=== PATIENT | male | born 1960 | race Caucasian/White ===

== ENCOUNTER 2023-07-24 11:22 | Outpatient (CLI) | payer BC, SELFPAY ==
--- NOTE | 2023-07-24 08:24 | DI.RAD_ITS ---
Exam(s) XR KNEE LT 2V AP,LAT EXAM: XR KNEE LT 2V AP,LAT CLINICAL HISTORY: OA LEFT KNEE. TECHNIQUE: 2D digital imaging was performed. COMPARISON: No exams were available for comparison FINDINGS: Two views. There is evidence of previous ACL surgery. No evidence of fracture. Small amount of increased joint fluid noted. The weight-bearing view there is [id number] narrowing of the medial compartment preservation of hei ght of the lateral compartment with milder degenerative changes lateral compartment. There is also s ignificant degenerative change in the patellofemoral compartment. On the lateral view there is also a calcified density posteriorly which is possibly a loose intra-articular body versus fabella. This measures 1.8 x 1.0 cm. IMPRESSION: Previous ACL surgery. Advanced degenerative change in the medial compartment. Moderate degenerative change in the patellofemoral compartment. Mild degenerative changes in the lateral compartment. Sm all joint effusion noted. DATA REPOSITORY: RADIATION DOSE DELIVERED:
--- NOTE | 2023-07-24 08:24 | DI.RAD_ITS ---
Exam(s) XR STANDING ALIGNMENT EXAM: XR STANDING ALIGNMENT CLINICAL HISTORY: OA LEFT KNEE. TECHNIQUE: 2D digital imaging was performed. COMPARISON: No exams were available for comparison FINDINGS: Five views There is evidence of previous left knee ACL surgery. There is moderate narrowing of the medial carol rtment of the left knee with preservation of height of the lateral compartment. In the opposite-righ t knee there is no significant joint space narrowing. Hips appear unremarkable as do the ankles. No osseous lesions. Bone density is age-appropriate. Incidentally noted in the lumbar spine is asymmetric disc space narrowing on the right side of L3-4 l evel with right-sided osteophytes. This may indicate asymmetric right-sided foraminal narrowing at t his level. IMPRESSION: Previous left knee ACL surgery with moderate narrowing of the medial compartment of the left knee. Other findings as above. DATA REPOSITORY: RADIATION DOSE DELIVERED:
== END 2023-07-24 11:23 | disposition home or self-care (01) ==
LOC: DIORS 11:22
PROVIDERS: Visit Provider Student in an Organized Health Care Education/Training Program
DX: M17.12 Unilateral primary osteoarthritis, left knee (principal)
CPT/HCPCS: 73560; 77073

== ENCOUNTER 2023-10-09 03:45 | Outpatient (CLI) | payer BC, SELFPAY ==
[2023-10-09 09:42] LABS: HCT 48.7 % (40.0-50.0); HGB 16.5 g/dL (13.5-17.5); MCH 31.8 pg (27.0-33.0); MCHC 33.9 % (32.0-36.0); MCV 94 fL (80-95); MPV 9.6 fL (8.0-11.0); Platelet Count 215 10^3/uL (130-400); RBC 5.19 10^6/uL (4.36-5.78); RDW 12.8 % (11.8-14.1); RDW-SD 44.4 fL; WBC 7.36 10^3/uL (4.4-10.8)
[2023-10-09 10:03] LABS: Anion Gap 9.7 mmol/L (3-11); BUN 15 mg/dL (7-18); CO2 29.3 mmol/L (21.0-32.0); CREATININE 1.1 mg/dL (0.70-1.30); Calcium 9.3 mg/dL (8.5-10.1); Chloride 104 mmol/L (98-107); Estimated GFR 74.96 (mL/min/1.73m2); Glucose 95 mg/dL (74-106); Potassium 4.1 mmol/L (3.5-5.1); Sodium 143 mmol/L (136-145)
== END 2023-10-09 03:46 | disposition home or self-care (01) ==
LOC: LBO 03:45
PROVIDERS: Visit Provider Student in an Organized Health Care Education/Training Program
DX: M17.32 Unilateral post-traumatic osteoarthritis, left knee (principal); Z01.818 Encounter for other preprocedural examination
CPT/HCPCS: 36415; 80048; 85027

== ENCOUNTER 2023-10-22 05:51 | Day surgery (SDC) | payer BC, SELFPAY ==
[2023-10-22] VITALS (24 sets, daily range): BP systolic 121–148; BP diastolic 73–96; PULSE 51–103; RESP 6–19; TEMP 36–36.9; O2SAT 94–98; BMI 27.9
--- NOTE | 2023-10-22 06:35 | W.ANESPRE ---
General Info Date of Service Date Performed: 10/22/23 Height: 5 ft 8 in Weight: 83.461 kg Body Mass Index (BMI): 27.9 Surgical Procedure: Operation Date: 10/22/23 07:55 Proposed Procedure Side Surgeon p Knee Total Arthroplasty, Cementless CR Left Cecil Solorzano MD Meds Allergies and Home Medications Allergies Allergy/AdvReac Type Severity Reaction Status Date / Time No Known Allergies Allergy Verified 10/22/23 06:20 Home Medication ?Medication ?Instructions ?Recorded atorvastatin 20 mg tablet 20 mg PO DAILY 07/23/23 gabapentin 300 mg capsule 300 mg PO TID 10/09/23 meloxicam 7.5 mg tablet 7.5 mg PO DAILY 10/09/23 acetaminophen 500 mg tablet 1,000 mg (2 x 500 mg) PO TID #90 10/22/23 tabs aspirin 81 mg tablet,delayed 81 mg PO BID #60 tabs 10/22/23 release dexamethasone 4 mg tablet 4 mg PO DAILY #2 tabs 10/22/23 oxycodone 5 mg tablet 5 mg PO Q4H PRN pain #20 tabs 10/22/23 pantoprazole 40 mg tablet,delayed 40 mg PO DAILY #30 tabs 10/22/23 release Current Visit Medications: Current Medications Generic Name Dose Route Start Last Admin Trade Name Freq PRN Reason Stop Dose Admin Acetaminophen 1,000 mg 10/22/23 06:00 Acetaminophen 500 Mg Tab PO 10/22/23 23:59 PREOP RACHEL Celecoxib 400 mg 10/22/23 06:00 Celecoxib 200 Mg Cap PO 10/22/23 23:59 PREOP RACHEL Gabapentin 300 mg 10/22/23 06:00 Gabapentin 300 Mg Cap PO 10/22/23 23:59 PREOP RACHEL Ringer's Solution 1,000 mls @ 80 mls/hr 10/22/23 06:00 IV 10/22/23 23:59 INFUSION RACHEL Cefazolin Sodium/Dextrose 2 gm in 50 mls @ 100 mls/hr 10/22/23 06:00 Ancef Duplex IVPB 10/22/23 23:59 PREOP RACHEL Tranexamic Acid/Sodium Chloride 1,000 mg in 100 mls @ 600 mls/hr 10/22/23 06:00 IVPB 10/22/23 23:59 PREOP RACHEL IV Miscellaneous Supplies 1 each 10/22/23 06:00 Iv Access IV 10/22/23 23:59 DIRECTED RACHEL Sodium Chloride 0 ml 10/22/23 06:00 Normal Saline Flush 10 Ml Syr IV 10/22/23 23:59 PRN PRN Sodium Chloride 0 ml 10/22/23 06:00 Normal Saline 10 Ml Vial IJ 10/22/23 23:59 DIRECTED PRN Sterile Water 0 ml 10/22/23 06:00 Water,Injection,Sterile 10 Ml Vial IJ 10/22/23 23:59 DIRECTED PRN PFSH Active Problems Active Problems: Problem Status Onset Code Post-traumatic osteoarthritis of left knee Acute M17.32 Medical History Medical History (Updated 10/21/23 @ 10:00 by Hayden Jaffe) Biceps tendon rupture repaired Hydrocele repair Low back pain Encephalitis s/p surgery 2011 Surgical History Surgical History Hx of brain surgery 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) [id number] pt no deficits Previous back surgery thoracic S/P reconstruction of ACL of left knee using bone-patellar tendon-bone autograft (2001) OATS procedure 1 year later 2002 Hx of fusion of cervical spine 2006 History of orthopedic surgery s/p Left biceps tendon repair (2012) Tobacco Smoking/Tobacco Use Status: Never Alcohol Alcohol Intake: current Alcohol intake frequency: 0-2 drinks per day Alcohol type: beer Substance Use Substance use: Occasionally Substance use type: marijuana Vital Signs and Lab Results Lab Results Blood Type / Crossmatch: No Data to Display Complete Blood Count: White Blood Count 7.36 10^3/uL (4.4-10.8) 10/09/23 09:21 Red Blood Count 5.19 10^6/uL (4.36-5.78) 10/09/23 09:21 Hemoglobin 16.5 g/dL (13.5-17.5) 10/09/23 09:21 Hematocrit 48.7 % (40.0-50.0) 10/09/23 09:21 Platelet Count 215 10^3/uL (130-400) 10/09/23 09:21 Complete Metabolic Panel: Sodium 143 mmol/L (136-145) 10/09/23 09:21 Potassium 4.1 mmol/L (3.5-5.1) 10/09/23 09:21 Chloride 104 mmol/L (98-107) 10/09/23 09:21 Carbon Dioxide 29.3 mmol/L (21.0-32.0) 10/09/23 09:21 BUN 15 mg/dL (7-18) 10/09/23 09:21 Creatinine 1.1 mg/dL (0.70-1.30) 10/09/23 09:21 Est GFR (CKD-EPI 2020) 74.96 (mL/min/1.73m2) 10/09/23 09:21 Calcium 9.3 mg/dL (8.5-10.1) 10/09/23 09:21 Glucose 95 mg/dL (74-106) 10/09/23 09:21 Liver Function Panel: No Data to Display Coagulation Panel: No Data to Display Cardiac Panel: No Data to Display Arterial Blood Gas: No Data to Display Venous Blood Gas: No Data to Display Pancreas Panel: No Data to Display Thyroid Panel: No Data to Display Infectious Disease: No Data to Display Blood Cultures: No Data to Display Toxicology Panel: No Data to Display Anesthesia Assessment and Plan Anesthesia History Personal History: No History of Anesthesia Complications Family History: No Family History of Anesthesia Complications Exercise Tolerance Exercise Tolerance: Metabolic Equivalents>4 Pertinent Negatives Pertinent Negatives: No Symptoms of GERD, No Major Cardiovascular Symptoms or Complaints, No Major Pulmonary Symptoms or Complaints and No History of CVA/TIA Cardiac & Pulmonary Exam Cardiac Exam: Normal S1/S2 Heart Sounds Pulmonary Exam: Clear Bilateral Breath Sounds and No cough or Cold Implantable Cardiac Device Does patient have a Pacemaker or an ICD?: No Airway Exam Known Difficult Airway: No Mallampati Class: 1 Mouth Opening: Normal (> 3cm) Thyromental Distance: Greater than 3 cm Neck Range of Motion: Limited ROM (hx cervical fusion ) Neck Circumference: Normal Teeth Condition: Normal Dentition ASA Classification ASA Score: ASA 2 Emergency Case?: No NPO Status NPO Status: NPO Clears >2 hours, Solids >8 hours Anesthesia Plan Resuscitation Status: Full Code Anesthesia Technique: Spinal Anesthesia Airway Planned: Natural Airway Pain Management: Surgeon and patient request nerve block Monitors Used: Standard Monitors
--- NOTE | 2023-10-22 06:40 | PDOC.DSDIS_ITS ---
Date of service: 10/22/23 Time of Service: 06:40 Discharge Plan Disposition Patient Disposition: Home Condition: Good Discharge Details Reason For Visit: L TKR Attending Provider: Cecil Solorzano Primary Care Provider: Unknown,Unknown Home Meds and New Rx's Prescriptions: New acetaminophen 500 mg tablet 1,000 mg PO TID Qty: 90 3RF aspirin 81 mg tablet,delayed release (DR/EC) 81 mg PO BID Qty: 60 0RF pantoprazole 40 mg tablet,delayed release (DR/EC) 40 mg PO DAILY Qty: 30 0RF dexamethasone 4 mg tablet 4 mg PO DAILY Qty: 2 0RF oxycodone 5 mg tablet 5 mg PO Q4H MDD 6 tabs PRN (Reason: pain) Qty: 20 0RF Continued atorvastatin 20 mg tablet 20 mg PO DAILY meloxicam 7.5 mg tablet 7.5 mg PO DAILY gabapentin 300 mg capsule 300 mg PO TID Discharge Instructions Additional Instructions: Total Knee Discharge Instructions Activity: The most important activity is to walk and to work on gentle motion (both flexion and extension). You should try to take short walks a few times a day. It is important that when resting you work on keeping the knee straight. Avoid putting a pillow behind the knee as this will encourage flexion. Work on range of motion exercises as provided by Physical Therapy. - Start outpatient physical therapy within 2 weeks. - You should wear the SHAKEEL hose on both legs for 2 weeks. You may remove these at night. You may also use any compression sock in place of the SHAKEEL hose. - Utilize [employer] to review exercises, see videos on exercises and obtain basic information pertaining to your surgery and your recovery. Dressing: Remove the Jaspal wrap by 2 days after your surgery and put on the SHAKEEL stocking given to you from the hospital. Keep the surgical dressing (underneath the JASPAL wrap) in place for at least one week. After the first week it may be removed and replaced with light gauze and tape or nothing. The wound and dressing may get wet after 3 days but avoid soaking the dressing or otherwise it will need to be changed. Many people prefer covering the dressing with cling wrap (saran wrap) to minimize it from getting soaked. If it gets wet, just pat dry. If it starts to peel off then it will need to be changed. Medications: - You should take Tylenol and your anti-inflammatory meloxicam as your primary pain control medications. - You have been prescribed a stronger pain medication Oxycodone for breakthrough pain, take as needed as prescribed. - You have also been prescribed a stomach acid reduction agent Pantoprozole to help reduce stomach acid and reflux. - You will continue your Gabapentin to take for restlessness and nerve pain. - You will be taking Aspirin 81mg twice a day for DVT prevention unless instructed otherwise. - You have also been prescribed Decadron to take to control post-operative nausea and pain. You will start this tomorrow. - If you have constipation you should take Colace or Miralax (both [id number]). It takes most people 3-4 days to have a bowel movement. Follow-up: 2 weeks If you have any acute concerns or questions, please do not hesitate to contact the office at [phone]. You may contact Dr. Solorzano with any questions after hours through the hospital at [phone] or on his cell phone at [phone]. Referrals: Cecil Solorzano MD [ [facility] STAFF PHYSICIAN] - Equipment/Supplies: Walker Activity:: Activity as Tolerated Shower/Bathe:: 72 hours Diet:: As Tolerated Discharge Orders Discharge Orders: Discharge Order (Routine); Ordered 10/22/23 Ordered By: David Bourne DS: Diagnosis Discharge Diagnosis (1) Post-traumatic osteoarthritis of left knee: Status: Acute
[2023-10-22] MEDS: Celecoxib 200 MG CAP 400 MG PO (07:03)
[2023-10-22] MEDS: Acetaminophen 500 MG TAB 1000 MG PO (07:04)
[2023-10-22] MEDS: Gabapentin 300 MG CAP PO (07:05)
[2023-10-22] MEDS: Lactated Ringers 1,000 ML 80 ML IV (07:20)
[2023-10-22] MEDS: ceFAZolin 2 GM/50 ML BAG IVPB (07:31)
[2023-10-22] MEDS: TRANEXAMIC ACID/SOD. CHL. 1,000 MG/100 ML BAG 600 MG IVPB (07:45)
--- NOTE | 2023-10-22 08:19 | W.ANESNERVE ---
Nerve Block Single Injection Procedure Date and Time Date Performed: 10/22/23 Procedure Start: 07:20 Location Where Procedure Performed Procedure Location: Day Surgery Unit Reason Performed: Postoperative Analgesia Requesting Provider: Cecil Solorzano Timeout Performed Timeout Performed: Yes Monitoring Used ECG, Blood Pressure, SpO2 and See EMR for corresponding vital signs Sterility Sterility: Hand Hygiene, Surgical Cap, Surgical Mask, Sterile Gloves and Chlorhexidine Sedation Given During Procedure Sedation Given (Indicate Dose Given): No Sedation given Patient Mental Status Patient Mental Status: Awake Nerve Block 1st Nerve Block: Laterality: Left Block Type: Adductor Canal Ultrasound Image Saved?: Yes Needle / Catheter Used: 100mm SonoPlex II Local Anesthetic Bolus (Indicate Dose Given): Lidocaine used for local infiltration of skin, Injected in 3-5ml increments after negative blood aspiration and Bupivacaine 0.25% Dose:: 15ml Additives (Indicate Dose Given): None Ultrasound: Sterile probe cover and gel used Nerve Stimulator: Supplement to Ultrasound use and No twitch or parasthesia noted < 0.5 mA Paresthesia: None Procedure Tolerated: No Complications and Patient tolerated well Procedure Outcome: Successful Performed By: Erwin Mukherjee Supervised By: Shama Reaves
[2023-10-22] MEDS: fentaNYL 100 MCG/2 ML VIAL IVP (09:39)
--- NOTE | 2023-10-22 10:17 | W.ANESPOSTOP ---
Postoperative Evaluation Date, Time and Location Date Performed: 10/22/23 Time Performed: 10:56 Patient Location: Day Surgery Unit Vital Signs Most Recent Imported Vital Signs: Most Recent Vital Signs Temp Pulse Resp BP Pulse Ox 36.9 C 55 L 11 L 141/78 H 95 10/22/23 09:48 10/22/23 09:56 10/22/23 09:56 10/22/23 09:56 10/22/23 09:56 Pain Score Most Recent Pain Score: Most Recent Pain Score Pain Level 3 10/22/23 09:48 Assessment Mental Status: Awake (Alert & Oriented to Patient Baseline) Airway and Respiratory Function: Patent airway with normal (patient baseline) respiratory exam Cardiovascular Function: Hemodynamically Stable Hydration Status: Adequately Hydrated Nausea & Vomiting: No Nausea or Vomiting Pain: Pain is tolerable per patient Peripheral Nerve Block: Regional nerve block not resolved at time of post operative discharge Teaching Patient Teaching: Discussed Safe Use of Pain Medication Given Recent Anesthesia
[2023-10-22] MEDS: oxyCODONE 5 MG TAB PO (10:30)
--- NOTE | 2023-10-22 11:13 | ROE_ITS ---
Date of service: 10/22/23 Time of Service: 07:50 Operative Note Operative Note DATE OF PROCEDURE: 10/22/23 PRE-OP DIAGNOSIS: Left Post-Traumatic Knee Osteoarthritis POST-OP DIAGNOSIS: same PROCEDURE: Left Total Knee Replacement SURGEON: Cecil Solorzano AUTO ELECTRICIAN: Kandy Bourne ANESTHESIA TYPE: Spinal Refer to Anesthesia Record ESTIMATED BLOOD LOSS: 100 PATHOLOGY: none sent TOURNIQUET TIME: 0 COMPLICATIONS: None Patient was transported to: PACU Patient's condition: stable Implants: 1. Depuy Attune Cementless Cruciate Retaining Femoral Component, Size 7 2. Depuy Attune Cementless Fixed Bearing Tibial Component, Size 7 3. Depuy Attune 7x7 CR/FB Poly 4. Depuy Attune Patellar Component, Size 38 Indications: I have seen Rogelio in clinic for symptoms of knee arthritis, confirmed with radiographic findings. He has exhausted nonoperative methods and was having significant limitations in daily function and desired better function and less pain. I discussed the technical details of a knee replacement. I explained the risks of the procedure to include, but not limited to, bleeding, infection, pain, stiffness, fracture, damage to nerves and vessels, damage to muscles and tendons, loosening, need for repeat procedure, blood clot and cardiopulmonary demise. Despite these risks, he elected to proceed. Findings: There was significant signs of arthritis throughout the knee with notable irregularity of the medial femoral condyle. Large osteophytes are present. Procedure Description: Rogelio was greeted in the preoperative holding area where the correct side was identified and marked. The consent was reviewed with the patient and signed. The history and physical was updated. All questions were answered. Preoperative medications were administered: Acetaminophen 1000mg, Celebrex 400mg, and Gabapentin 300mg. An adductor canal block was then administered by the anesthesia team in the PACU. He was taken back to the operating room. A spinal anesthestic was then administered. The patient was placed into the supine position on the operating room table. A nonsterile tourniquet was placed high onto the leg but only used for cementing. Posts were placed for positioning during the procedure. All bony prominences were well padded. Prophylactic antibiotics in the form of Cefazolin were administered. 1g of Tranxemic Acid was given intravenously within 30 minutes of incision. The left leg was then prepped with Chloraprep and draped in a standard fashion with impervious stockinette. A second prep with Chloraprep was performed prior to application of Iodine impregnated skin protection. A timeout to confirm correct identity, side and site, procedure, allergies, anesthesia, and medical concerns was performed. With the knee in some flexion, a midline incision was made overlying the knee. Full thickness skin flaps were raised once the extensor mechanism was encountered. These were raised medially and laterally. Any bleeding was controlled with electrocautery. Once the extensor mechanism was fully exposed, a medial parapatellar arthrotomy was performed in a flexed position. All bleeding from the arthrotomy and the geniculate arteries was coagulated. A medial subperiosteal peel was performed with electrocautery to the midcoronal plane. Due to the significant varus deformity the entire medial tibial plateau was exposed. The fat pad was removed while keeping the patellar tendon protected. The anterior distal femur synovium was removed for later visualization. The ACL and PCL were resected and the ante rior horn of the lateral meniscus was transected. The knee was then flexed with the patella everted. Large osteophytes from the tibia were removed. Large osteophytes from the femur were removed. Using a step drill, and based on preoperative templating, the femoral canal was entered. This was done with a step drill without any difficulty. The intramedullary distal femoral cut guide was inserted, set to a 5 degree valgus cut and 9mm cut thickness. The distal femoral cut guide was then held in position and pinned. With the soft tissues protected, the distal cut was performed. This was passed over a few times to ensure a planar cut. I then turned attention to the tibia. The extramedullary guide was placed onto the leg. The distal aspect was slid medial to adjust for position of center of ankle and stay in line with shaft of the tibia. Approximately 3-5 degrees of posterior slope was kept in the proximal cutting guide. The center of the guide was aligned with the PCL. The stylus was used to assess cut thickness. The medial side, most involved side, was set for a 4mm cut. This was then held in position and pinned into place with 2 additional pins and a cross pin for stability. The medial and lateral collateral ligaments were protected and the cut was performed. With this completed, it was assessed and noted to be of appropriate dimensions. The guide was removed. A spacer block was inserted and the knee was brought into extension. The 7mm spacer block provided full extension, without hyperextension and with stability of both the medial and lateral collateral ligaments was assessed. The pins from the femur and the tibia were then removed. The distal femur was then sized. The anterior stylus was placed onto the lateral ridge of the anterior femur. This indicated a size 7 femur. The external rotation of the guide was adjusted to 3 degrees to match the epicondylar axis, perpendicular to Sparland?s line. The 4-in-1 cutting guide was the placed. The posterior medial femur cut was evaluated and appeared of good thickness. The spacer block was inserted underneath the cutting guide and stability was confirmed in 90 degrees of flexion. An cleo wing was used to confirm appropriate position of the anterior cut to avoid notching. This cutting guide was ensured to be flush on the cut surface and then pinned into place with headed pins. While protecting the soft tissues, quad tendon, and collateral ligaments, the anterior and posterior cuts were performed with a saw. The central two pins were removed and the posterior and anterior chamfers were cut next. The notch-cutting guide was placed. This was pinned to lateralize the femoral component as much as possible while keeping it flush on the cut surface. This was then pinned into position. A reciprocating saw was used to make the notch cut. A rasp smoothed the cut surfaces. The medial and lateral menisci were removed. A trial femoral component was then inserted, impacted down to the cut surfaces, and the lug holes were drilled. A provisional trial tibial component was placed and the knee was brought through range of motion. There was noted to be excellent extension and flexion. There was no significant instability. The patella was tracking without thumbs. A size 7mm polyethylene component provided the best range of motion and stability with less than 2mm gapping with medial and lateral stress and full extension without significant hyperextension. The tibial cut surface was fully exposed. The tibia was then sized as a 7. The tibia had been previously marked during trialing to correspond to the center of the tibial component to help with rotation. The trial was aligned to this kandy, approximately rotated to the medial 1/3rd of the tibial tubercle. The trial was pinned into place. The tibia was prepared with a reamer and a keel punch and lug holes. The knee was then brought into extension and the patella was measured as 28mm. Using the patellar clamp and cut guide, this was resected to a flat surface with at least 13mm of thickness remaining. The size 38 patella fit the best. This was oriented and then clamped into position. The lugs were drilled. The trial components were removed. The final components were opened on the back table. The periosteal and capsular tissues, especially posteriorly, around the knee were then systematically injected with a periarticular cocktail consisting of 246mg of Ropivacaine, 0.5mg of Epinephrine, 0.08mg of Clonidine, and 30mg of Ketorolac, diluted to 100cc. On the back table, with the implants opened, the cement was mixed. One batch of high viscosity cement was prepared with vacuum assistance. After the cement was ready a small amount was placed on the cut surface of the patella and the patellar button was clamped into position and held. While the cement was hardening, the cementless knee components were placed. Starting with the tibial component, the tibia was subluxed anteriorly and the lug holes of the component were lined up. The tibia was then impacted with an impactor and mallet until the tibial component was in contact with the tibia. The final polyethylene component was inserted. Then, the femoral component was inserted. The lug holes were aligned and the component was impacted into position. The knee was irrigated with Surgiphor Betadine solution. This was allowed to sit in the knee for 3 minutes and then it was irrigated out with saline. After the cement had finally cured, approximately 15min, the clamp was removed from the patella and the knee was taken through range of motion. The patella was tracking with a no-thumbs technique. The capsule was then reapproximated with a No. 2 Fiberwire as well as a No. 1 Vicryl at multiple locations. The capsule was finally closed with a No. 2 Stratafix, barbed suture. The second dosing of 1g TXA was started. Deep tissues were then reapproximated with 0 Vicryl and 2-0 Vicryl. The skin was closed with a running 3-0 Monocryl in a subcuticular fashion. This was reinforced with skin glue. A Mepilex silver dressing was applied along with a [id number]-if-odpoc GEO wrap. A CryoCuff was applied. Put was transferred to the hospital bed without difficulty an suffering no apparent complication. He has a good prognosis. Physical therapy will start today and without restrictions, weight-bearing as tolerated. Aspirin 81mg BID will be used for DVT prophylaxis.
--- NOTE | 2023-10-22 11:35 | IN_ITS ---
PT Notes Visit Reasons: L TKR Physical Therapy Day Surgery Initial Evaluation Date: 10/22/2023 Referring Doctor: KIMBERLY Aguilar PT Orders: PT CONSULT: S/P Ortho surgery Precautions: WBAT on the left LE with AD Patient Profile/Admitting Diagnosis: Efraín is a 63-year-old male with posttraumatic osteoarthritis of the left knee and is status post left total knee arthroplasty on postoperative day 0. 10/22/2023 PMHX: Medical History (Updated 10/09/23 @ 09:14 by KIMBERLY Aguilar) Low back pain Encephalitis s/p surgery 2012 Surgical History (Updated 07/24/23 @ 08:44 by KIMBERLY Aguilar) S/P reconstruction of ACL of left knee using bone-patellar tendon-bone autograft (2001) OATS procedure 1 year later 2002 Hx of fusion of cervical spine 2005 History of orthopedic surgery s/p Left biceps tendon repair (2012) Social History/Home Situation: Lives with in a private home with 2 steps to enter on one side, wall on the other side. Iindependent with all aspects of ADLs prior to surgery although has had increasing to arthritic processes in the left knee. Equipment Owned/DME: Nonw Subjective: reported pain at 3/10 only on the outer side of the L knee. Willing to work [facility] PT as he should. Motivated to get better. Objective: General Observation: Jaspal wraps to R LE. Cryocuff to left knee. TEDS to R leg/foot. Mental Status: A and O x 4 Pain: 3/10 in the L knee ROM: Assessment right Lower Extremity: Hip flexion WFL. Hip abduction WFL. Knee flexion WFL. Ankle dorsiflexion WFL. Ankle plantarflexion WFL. Left Lower Extremity: Hip flexion WFL. Hip abduction WFL. Knee flexion 0-90 degrees. Ankle dorsiflexion WFL. Ankle plantarflexion WFL. Strength: Right Lower Extremity: Hip flexors 4/5. Hip abductors 4 Right Upper Extremity: Shoulder Flexion WFL. Shoulder abduction WFL. Elbow flexion WFL. Wrist flexion WFL. Functional opening and closing of hand WFL. Left Upper Extremity: Shoulder Flexion WFL. Shoulder abduction WFL. Elbow flexion WFL. Wrist flexion WFL. Functional opening and closing of hand WFL. Right Lower Extremity: Hip flexion WFL. Hip abduction WFL. Knee flexion WFL. Ankle dorsiflexion WFL. Ankle plantarflexion WFL. Left Lower Extremity: Hip flexion WFL. Hip abduction WFL. Knee flexion WFL. Ankle dorsiflexion WFL. Ankle plantarflexion WFL. /5. Knee flexors 3-/5. Knee extensors 4-/5. Ankle dorsiflexors 5/5. Ankle plantarflexors 5/5. Left Lower Extremity:Hip flexors 5/5. Hip abductors 5/5. Knee flexors 5/5. Knee extensors 5/5. Ankle dorsiflexors 5/5. Ankle plantarflexors 5/5. Sensation: Intact as to pain an light pressure in B LE Bed Mobility/Transfers: MInimal cueing provided for use of B hands as needed for support, movement sequence, AD management, and posture to reduce fall risk and minimize pain report Supine to sit [] Sit to stand [] Stand to sit [] Bed to chair [] Gait: Facilitate safe and correct performance of level surface ambulation covering a distance of 150 feet using front wheeled walker requiring standby assist and minimal cueing provided for use of movement sequence, AD management, and posture to reduce fall risk and minimize pain report. No SOB. NO LOB. Stairs: Guided patient with safe negotiation of 6 x 4 inch steps 6 inch steps while holding onto bilateral rails with step to gait pattern with standby assist and minimal verbal cueing to increase knee flexion on the left during each stand, weight distribution, and posture to reduce fall risk and minimize pain report. Balance: Static Sitting: Normal Dynamic Sitting: Normal Static Standing: Fair Dynamic Standing: Fair Special Tests: Mobility Limitations Standardized Measure [facility] AM-PAC 6 clicks Basic Mobility Inpatient Short Form: Raw Score: 24 CMS Score: 0% deficit Informed Consent/Education: Patient instructed in purpose of PT consult. Packet containing [] exercise protocol has been given to patient. Education and training on initial set of exercises that can be done at home have been completed with patient. Assessment: Patient requires the use of a front-wheeled walker for all mobility ADL performance to miximixze indepednence and reduce fall risk. Good quad activation on L. Patient presents with clinical signs and symptoms consistent with current/admitting diagnoses that have resulted to mobility limitations, gait instability, generalized weakness, and impairment of motor control as demonstrated by the following impairment level findings: 1. Decreased strength to left knee major muscle groups 2. Impaired standing balance 3. Limitation of joint range of motion in left knee Impairments are contributing to the following functional limitations: 1. Inability to safely ambulate without assistive device 2. Increase completion time for mobility ADL performance 3. Increased fall risk Patient is assessed as a 24690 moderate complexity based on the following: History: 63-year-old male with impairment level findings, functional limitations, and past medical history as indicated above Examination: Demonstrable impairment in strength, balance, and mobility level with underlying impairments and functional limitations as documented above Presentation: Evolving Decision Makin moderate complexity Goals: N/A. PT evaluation and 1-2 treatment sessions only for functional mobility training using recommended AD and for HEP instruction. Plan of Care/Treatment Plan: N/A. PT evaluation and 1-2 treatment session only for functional mobility training using recommended AD and for HEP instruction. DISCHARGE RECOMMENDATIONS: Home when medically cleared by orthopedic surgeon. Recommend outpatient PT services in order to optimize functional mobility outcomes and facilitate return to independent community ambulation without an assistive device. TREATMENT CODE/TIME: 28134 x 23 minutes for 1 unit (11:35-11:58). Thank you for the opportunity to participate in the care of this patient. Please sign an return this page within 30 days if you agree with the above POC. Thank you! Physician Signature Date [facility] Leelee Thakkar PT, DPT, CLT [facility] fax Number [phone]
== END 2023-10-22 12:15 | disposition home or self-care (01) ==
PROVIDERS: Visit Provider Student in an Organized Health Care Education/Training Program
PROC: (CPT 27447; principal; 2023-10-22 07:45)
DX: M17.32 Unilateral post-traumatic osteoarthritis, left knee (principal)
CPT/HCPCS: 27447; 76942; 97162; C1776; J0665; J0690; J1100; J2001; J2250; J2371; J2401; J2405; J2704; J3010

== ENCOUNTER 2023-11-06 12:00 | Outpatient (CLI) | payer BC, SELFPAY ==
--- NOTE | 2023-11-06 09:31 | DI.RAD_ITS ---
Exam(s) XR KNEE LT 1V XR STANDING ALIGNMENT EXAM: XR STANDING ALIGNMENT CLINICAL HISTORY: 1ST POST OP L TKA. TECHNIQUE: 2D digital imaging was performed. Standing AP views were performed from the pelvis throu gh the ankles. Lateral weight-bearing view of the left knee COMPARISON: CR XR STANDING ALIGNMENT from 07/24/2023 CR XR KNEE LT 1V from 11/06/2023 FINDINGS: BONES: No acute fracture is present. No bony destructive lesion is seen. Leg length discrepancy: No significant overall leg length discrepancy. JOINTS: Knees: Patient is now status post placement of a left total knee prosthesis. The alignment a ppears satisfactory. No abnormal surrounding bony lucencies. The right knee joint spaces are mainta ined. The ankle joints show mild degenerative changes medially. The hip joints show mild degenerative changes. SOFT TISSUE: Normal. IMPRESSION: Mild degenerative changes at the hips and ankles. No significant leg length discrepancy. Status post placement of left total knee prosthesis. DATA REPOSITORY: RADIATION DOSE DELIVERED:
== END 2023-11-06 12:01 | disposition home or self-care (01) ==
LOC: DIORS 12:00
PROVIDERS: Visit Provider Student in an Organized Health Care Education/Training Program
DX: Z96.652 Presence of left artificial knee joint (principal); Z47.1 Aftercare following joint replacement surgery
CPT/HCPCS: 73560; 77073

== ENCOUNTER 2024-11-29 09:53 | Outpatient (CLI) | payer OTHER, SELFPAY ==
--- NOTE | 2024-11-29 08:45 | DI.RAD_ITS ---
Exam(s) XR KNEE LT 2V AP,LAT EXAM: XR KNEE LT 2V AP,LAT CLINICAL HISTORY: ANNUAL F/U L TKA. TECHNIQUE: 2D digital imaging was performed. Two images were obtained. AP and lateral views were obtained. COMPARISON: CR XR KNEE LT 1V from 11/06/2023 CR XR STANDING ALIGNMENT from 11/06/2023 FINDINGS: BONES: There are stable post operative changes of a left total knee arthroplasty present. No fracture or dislocation. There are findings of a prior ACL repair again noted. There is an enthesophyte at the superior patella. JOINTS: The orthopedic hardware is in good position. No evidence of hardware loosening. SOFT TISSUE: Normal. IMPRESSION: Stable left total knee arthroplasty. DATA REPOSITORY: RADIATION DOSE DELIVERED:
== END 2024-11-29 09:54 | disposition home or self-care (01) ==
LOC: DIORS 09:53
PROVIDERS: Visit Provider Physician Assistant
DX: Z96.652 Presence of left artificial knee joint (principal)
CPT/HCPCS: 73560